=== PATIENT | male | born 1960 | race Caucasian/White ===

== ENCOUNTER 2017-04-23 05:36 | Day surgery (SDC) | payer OTHER ==
[2017-04-23] MEDS ORDERED: Lactated Ringers 1,000 ML IV SCH (06:30)
[2017-04-23] MEDS ORDERED: Lactated Ringers 1,000 ML IV ONE (08:41)
[2017-04-23] MEDS ORDERED: Versed 2 MG/2 ML Injection IV ONE (09:00)
[2017-04-23] MEDS ORDERED: DIPRIVAN 200 MG/20 ML IV ONE (09:00)
[2017-04-23 09:21] VITALS: O2SAT 95
[2017-04-23 09:55] VITALS: BP 124/77; PULSE 77
--- NOTE | 2017-04-23 10:48 | OP ---
SURGERY DATE: 04/23/17 SURGERY TIME: 818 PREOPERATIVE DIAGNOSIS: 1. RECTAL BLEEDING AND RECTAL PAIN. POSTOPERATIVE DIAGNOSIS: 1. NORMAL COLON. PROCEDURE: 1. Colonoscopy. SURGEON: Dr. Irizarry. ANESTHESIA: MAC. Medications given by the Anesthesia Department. BRIEF HISTORY: The patient is a 56 y/o WM patient presenting now for colonoscopic evaluation. He was appraised of the risks of the procedure including the risk of perforation, phlebitis, untoward reaction to medication, bleeding, and missed lesions. The patient verbalized his understanding and desired to have the procedure performed. DESCRIPTION OF PROCEDURE: The patient was given the medications by the Anesthesia Department. He had continuous pulse oximetry, ECG monitoring, intermittent BP monitoring, and end tidal CO2 monitoring during the examination. He was placed in the left lateral decubitus position. A digital rectal examination was performed and revealed normal anal sphincter tone, no masses, and a normal prostate. No significant hemorrhoids were noted. The flexible Olympus pediatric colonoscope was used to intubate the rectum. A view of the colon was developed sequentially to the cecum. Upon insertion and withdrawal, including a retroflex view in the rectum, no mucosal lesions were encountered. The scope was then removed from the patient who tolerated the procedure well and was sent back to OP recovery in good condition. The prep was noted to be fair.
== END 2017-04-23 10:00 | disposition home or self-care (01) ==
LOC: SDC 05:36
PROVIDERS: ATTEND Family Medicine
PROC: 0DJD8ZZ Inspection of Lower Intestinal Tract, Via Natural or Artificial Opening Endoscopic (ICD-10-PCS; principal; 2017-04-23)
DX: K62.5 Hemorrhage of anus and rectum (principal); K62.89 Other specified diseases of anus and rectum
CPT/HCPCS: 00810; J2250; J2704

== ENCOUNTER 2022-11-03 08:04 | Day surgery (SDC) | payer OTHER ==
[~2022-11-03 08:04] MED LIST: Ak-Dilate OPHTHALMIC*** 1.065 ML, Cyclogyl 1% OPHTH SOL 1.065 ML, GATIFLOXACIN 0.5% OPH... OP ONE; BETADINE 5% OPHTHALMIC 30 ML OP ONE; Lactated Ringers 1,000 ML IV SCH; NON-FORMULARY ITEM OP ONE; TETRACAINE 0.5% STERI-UNIT SOL OP ONE; cefUROXime sodium 0.005 GM in Sodium Chloride Flush 30 ML*** 0.5 ML IJ ONE
[2022-11-03] MEDS ORDERED: Lactated Ringers 1,000 ML IV ONE (08:09)
[2022-11-03] MEDS ORDERED: Zofran 4 MG/2 ML VIAL IV PRN (09:00)
[2022-11-03] MEDS ORDERED: ACETAZOLAMIDE 250 MG TABLET PO ONE (09:00)
[2022-11-03] MEDS ORDERED: SUBLIMAZE 100 MCG/2 ML ONE (09:52)
[2022-11-03] MEDS ORDERED: DIPRIVAN 200 MG/20 ML IV ONE (09:52)
[2022-11-03] MEDS ORDERED: Xylocaine-Mpf 2% 5 Ml Vial ONE (09:52)
[2022-11-03] MEDS ORDERED: Versed 2 MG/2 ML Injection ONE (09:52)
[2022-11-03 10:20] VITALS: O2SAT 95
[2022-11-03 10:27] VITALS: BP 116/74; PULSE 72
[2022-11-03] MEDS ORDERED: Epinephrine Preservative Free 1 MG/ML ONE (14:50)
== END 2022-11-03 10:37 | disposition home or self-care (01) ==
LOC: SDC 08:04
PROVIDERS: ATTEND Ophthalmology
DX: H25.812 Combined forms of age-related cataract, left eye (principal); E11.9 Type 2 diabetes mellitus without complications
CPT/HCPCS: 82947; C1780; J0171; J2250; J2704; J3010; A9270-GY

== ENCOUNTER 2024-11-03 06:46 | Emergency (ER) | payer BC, MEDICARE ==
[2024-11-03 07:09] VITALS: TEMP 97; O2SAT 95
--- NOTE | 2024-11-03 07:51 | ERPHSYRPT ---
- History of Present Illness Source: patient, family Exam Limitations: no limitations Patient Subjective Stated Complaint: pt states that he fell backward off the steps. pt states that he fell down 3 steps Triage Nursing Assessment: pt ambulated into the er; pt is axo x4; c/o fall; pt states 4/10 pain to neck; c/o dizziness; pt states positive LOC; tenderness to c spine; pt states pain to rt cheek, rt collar bones, rt posterior head; c/o nausea; pupils 3 mm and PERRL; skin PDW; vitals wnl Occurred: just prior to arrival Reason for Fall: lost balance, fell from standing pos Injuries/Pain Location: head, face, neck, upper extremity (Right side shoulder and clavicle) Loss of Consciousness: brief (seconds) Quality: aching Severity of Pain-Max: moderate Severity of Pain-Current: moderate Modifying Factors: Improves With: movement Associated Symptoms (Fall): extremity injury, headache, No chest pain, No dizziness, No shortness of breath, No slurred speech, No vomiting, No vision changes Hx Tetanus, Diphtheria Vaccination/Date Given: Yes Hx Influenza Vaccination/Date Given: No Hx Pneumococcal Vaccination/Date Given: Yes <BYRON JUAREZ - Last Filed: 11/03/24 09:01> <SUSIE BOTELLO - Last Filed: 11/03/24 09:38> - History of Present Illness Time Seen by Provider: 11/03/24 07:05 Physician History: This is a 64-year-old white male patient who has a history of diabetes and prostate issues and woke up this morning to go have a smoker of tobacco cigarettes. When he went to step, patient fell backwards off of 3 steps hitting his head, right side of his face, with associated brief loss of consciousness. He also complains of neck pain, right shoulder pain and right clavicle pain. Patient is not on any anticoagulation therapy. This occurred at approximately 530 this morning prior to arrival. Patient states he has mild nausea. Patient, upon entering the emergency department, had a c-collar placed. (BYRON JUAREZ) Allergies/Adverse Reactions: Penicillins Allergy (Verified 11/03/24 06:51) Home Medications: Metformin HCl 500 mg [Glucophage 500 MG] 1,000 mg PO DAILY 10/22/22 [History] Tamsulosin HCl 0.4 mg [Flomax 0.4 MG] 1 tab PO DAILY 10/22/22 [History] Travel Risk - International Travel Have you traveled outside of the country in past 3 weeks: No - Emerging Infectious Disease Are you exhibiting symptoms associated with any current EIDs: No <BYRON JUAREZ - Last Filed: 11/03/24 09:01> - Review of Systems Constitutional: No Symptoms Eyes: No Symptoms Ears, Nose, & Throat: No Symptoms Respiratory: No Symptoms Cardiac: No Symptoms Abdominal/Gastrointestinal: No Symptoms Genitourinary Symptoms: No Symptoms Musculoskeletal: Neck Pain, Fall, Injury (Clavicle and right shoulder) Skin: No Symptoms Neurological: Headache Psychological: No Symptoms Endocrine: No Symptoms Hematologic/Lymphatic: No Symptoms Immunological/Allergic: No Symptoms All Other Systems: Reviewed and Negative <BYRON JUAREZ - Last Filed: 11/03/24 09:01> - Past Medical History Pertinent Past Medical History: Yes Neurological History: No Pertinent History ENT History: Cataracts Cardiac History: No Pertinent History Respiratory History: No Pertinent History Endocrine Medical History: Diabetes Type II Musculoskeletal History: No Pertinent History GI Medical History: GERD History: No Pertinent History Psycho-Social History: No Pertinent History Male Reproductive Disorders: No Pertinent History - Past Surgical History Past Surgical History: Yes Neuro Surgical History: No Pertinent History Cardiac: No Pertinent History Respiratory: No Pertinent History Gastrointestinal: No Pertinent History Genitourinary: Other Musculoskeletal: No Pertinent History Male Surgical History: No Pertinent History Other Surgical History: bladder surgery 2017 Significant Family History: AORTIC ANEURYSMS - Social History Smoking Status: Never smoker Exposure to second hand smoke: Yes Drug Use: none - Social Determinants of Health Will the patient participate in the screening: Yes Do you worry about a steady place to live?: No Do you have any problems with any of the following?: No known problems In the past 12 months,have you had to go without utilities?: No Transportation Issues: No Has anyone in your support network made you feel unsafe?: No Have you or anyone in your house had to go without enough: No <BYRON JUAREZ - Last Filed: 11/03/24 09:01> - [place] Coma Score Best Eye Response ([place]): (4) open spontaneously Best Verbal Response (Joanna): (5) oriented Best Motor Response ([place]): (6) obeys commands Joanna Total: 15 - Physical Exam General Appearance: no apparent distress, alert, anxiety Head Injury: contusions (Occipital region), tenderness (Occipital region), No active bleeding Eye Exam: PERRL/EOMI, eyes nml inspection ENT Exam: airway nml, hearing grossly normal, other (Tenderness right side of face) Neck Exam: trachea midline, c-collar in place Respiratory/Chest Exam: normal breath sounds, No chest tenderness, No respiratory distress, No ecchymosis, No crepitus Cardiovascular Exam: normal heart sounds, regular rate/rhythm Gastrointestinal Exam: soft, normal bowel sounds, No tenderness Rectal Exam: not done Back Exam: normal inspection, normal range of motion, No CVA tenderness, No vertebral tenderness Extremity Exam: pelvis stable, tenderness (Right clavicle right shoulder), No deformities Neurologic Exam: alert, oriented x 3, cooperative, food sanitarian II-XII nml as tested Skin Exam: normal color, warm, dry SpO2 Interpretation: normal SpO2: 95 O2 Delivery: Room Air <BYRON JUAREZ - Last Filed: 11/03/24 09:01> - Nursing Vital Signs Nursing Vital Signs: Initial Vital Signs Temperature 97 F 11/03/24 06:52 Pulse Rate 80 11/03/24 06:52 Respiratory Rate 20 11/03/24 06:52 Blood Pressure 138/78 11/03/24 06:52 O2 Sat by Pulse Oximetry 95 11/03/24 06:52 Pain Scale Pain Intensity 5 - Course Nursing assessment & vital signs reviewed: Yes <BYRON JUAREZ - Last Filed: 11/03/24 09:01> Ordered Tests: Active Orders 24 hr Category Date Time Status IV Insertion STAT Care 11/03/24 08:20 Active CERVICAL SPINE WO CONTRAST [CT] Stat Exams 11/03/24 07:23 Completed CHEST 1 VIEW (PORTABLE) Stat Exams 11/03/24 07:24 Completed CLAVICLE Stat Exams 11/03/24 07:24 Completed ELBOW (MINIMUM 3 VIEWS) Stat Exams 11/03/24 07:51 Completed FACIAL BONES WO CONTRAST [CT] Stat Exams 11/03/24 07:23 Completed HEAD WITHOUT CONTRAST [CT] Stat Exams 11/03/24 07:23 Completed HUMERUS Stat Exams 11/03/24 07:52 Completed KNEE (1 OR 2 VIEW) Stat Exams 11/03/24 07:52 Completed SHOULDER Stat Exams 11/03/24 07:24 Completed BMP Stat Lab 11/03/24 08:50 Completed CBC W DIFF Stat Lab 11/03/24 08:50 Completed Medication Summary Discontinued Medications Generic Name Dose Route Start Last Admin Trade Name Parthq PRN Reason Stop Dose Admin Droperidol 1.25 mg 11/03/24 08:20 11/03/24 08:30 Droperidol 5 Mg/2 Ml Vial IV 11/03/24 08:21 1.25 mg STAT ONE Administration Droperidol Confirm 11/03/24 08:29 Droperidol 5 Mg/2 Ml Vial Administered 11/03/24 08:30 Dose 5 mg .ROUTE .STK-MED ONE Sodium Chloride 500 mls @ 500 mls/hr 11/03/24 08:21 11/03/24 08:30 Sodium Chloride 0.9% 500 Ml IV 11/03/24 09:20 500 mls/hr .Q1H ONE Administration Sodium Chloride Confirm 11/03/24 08:29 Sodium Chloride 0.9% 500 Ml Administered 11/03/24 08:30 Dose 500 mls @ ud IV .STK-MED ONE Lab/Rad Data: Laboratory Result Diagrams 11/03/24 08:50 11/03/24 08:50 Laboratory Results 11/03/24 11/03/24 Range/Units 08:50 08:50 WBC 7.4 (4.23-9.07) x10^3/uL RBC 4.87 (4.63-6.08) x10^6/uL Hgb 15.0 (13.7-17.5) g/dL Hct 44.6 (40.1-51.0) % MCV 91.6 (79.0-92.2) fL MCH 30.8 (25.7-32.2) pg MCHC 33.6 (32.3-36.5) g/dL RDW 12.9 (11.6-14.4) % Plt Count 162 L (163-337) x10^3/uL MPV 9.3 L (9.4-12.4) fL Gran % 73.4 H (34.0-67.9) % Immature Gran % (Auto) 0.5 H (0.001-0.429) % Nucleat RBC Rel Count 0.0 (0.00-0.2) % Eos # (Auto) 0.09 (0.04-0.54) x10^3/uL Immature Gran # (Auto) 0.04 H (0.001-0.031) x10^3u/L Absolute Lymphs (auto) 1.33 (1.32-3.57) x10^3/uL Absolute Monos (auto) 0.49 (0.30-0.82) x10^3/uL Absolute Nucleated RBC 0.00 (0.00-0.012) x10^3u/L Lymphocytes % 17.9 L (21.8-53.1) % Monocytes % 6.6 (5.3-12.2) % Eosinophils % 1.2 (0.8-7.0) % Basophils % 0.4 (0.2-1.2) % Absolute Granulocytes 5.46 H (1.78-5.38) x10^3/uL Basophils # 0.03 (0.01-0.08) x10^3/uL Sodium 137 (135-145) mmol/L Potassium 4.6 (3.5-5.1) mmol/L Chloride 105 (98-107) mmol/L Carbon Dioxide 23 (22-30) mmol/L Anion Gap 13.6 (5-15) MEQ/L BUN 20 (9-20) mg/dL Creatinine 0.68 (0.66-1.25) mg/dL Estimated GFR 103.2 ML/MIN Glucose 153 H (74-106) mg/dL Calcium 9.6 (8.4-10.2) mg/dL - Progress Progress: improved, pain not gone completely Counseled pt/family regarding: diagnosis, rad results <BYRON JUAREZ - Last Filed: 11/03/24 09:01> <SUSIE BOTELLO - Last Filed: 11/03/24 09:38> - Progress Progress Note: 11/03/24 07:48 My medical decision making and the assignment of moderate complexity to this patient's medical issue today is based on review of the patient's past medical history, review the patient's medication list, reviewed patient drug allergy list, history present illness and physical findings on examination. The workup today includes CT scan of the head, face and cervical spine. We will also order x-rays of the right clavicle right shoulder, portable chest x-ray, right humerus and right elbow as well as right knee. Differential diagnosis includes but is not limited to acute intracranial abnormality, acute cervical spine abnormality, acute facial bones abnormality, acute right clavicle, right shoulder, right elbow, right knee abnormality 11/03/24 08:49 I interpreted the preliminary reports on the plain x-rays: X-ray of the right shoulder shows no acute fracture or dislocation. X-ray of the right clavicle shows no acute fracture or dislocation. X-ray of the chest shows no acute cardiopulmonary process. No osseous abnormalities. X-ray of the right humerus shows a questionable old healing versus acute midshaft, nondisplaced fracture. X-ray of the right elbow shows no acute fracture or dislocation. 11/03/24 09:01 I am transferring care to Dr. Botello at 9 AM. I have reviewed the patient history, presenting complaint and workup that has been performed. He will follow-up on the workup results and make final disposition (BYRON JUAREZ) Patient was stable throughout stay. He got turned over to me. His thumbs all came back negative. He had multiple CTs and x-rays. We are going to discharge him to home. 11/03/24 09:37 (SUSIE BOTELLO) Medical Desision Making - Independent Historian Additional History obtained from: Spouse - Diagnostic Testing Radiological Interpretation: Interpreted by me, Reviewed by me, Teleradiologist Report - Risk of complications The pt has a mod risk of morbidity or mortality based on: Need for prescription drug management <BYRON JUAREZ - Last Filed: 11/03/24 09:01> - Independent Historian Additional History obtained from: Spouse - Risk of complications Minimal Risk: Minimal risk of morbidity <SUSIE BOTELLO - Last Filed: 11/03/24 09:38> - Departure Departure Disposition: Home Critical Care Time: No <BYRON JUAREZ - Last Filed: 11/03/24 09:01> - Departure Departure Disposition: Home <SUSIE BOTELLO - Last Filed: 11/03/24 09:38> - Departure Clinical Impression: Fall with injury Condition: Stable Referrals: BAILEY LONGO [Primary Care Provider] - Follow up/PCP as directed Instructions: Contusion (DC), Preventing falls in adults Additional Instructions: Ice pack to tender areas 3-4 times a day for the next 2 to 3 days. If there are no contraindications you may use Tylenol and ibuprofen slowly. However fill the Percocet prescription if you need stronger pain control in the place of Tylenol. Call your primary care provider today to make arranges for follow-up appointment to be seen in the next 3 to 5 days. Prescriptions: Ondansetron ODT 4 MG [Zofran Odt 4 mg] 4 mg PO Q6H PRN PRN #10 tablet PRN Reason: Vomiting Oxycodone HCl/Acetaminophen [Percocet 5-325 mg Tablet] 1 each PO Q8H PRN PRN #6 tablet MDD 3 PRN Reason: Moderate To Severe Pain
[2024-11-03] MEDS ORDERED: Sodium Chloride 0.9% 500 ML 500 ML IV ONE (08:29)
[2024-11-03] MEDS: Sodium Chloride 0.9% 500 ML 500 ML IV ONE (08:30)
[2024-11-03 08:51] LABS: Absolute Neutrophil Ct (ANC) 5.46 x10^3/uL (1.78-5.38); BASOPHIL % 0.4 % (0.2-1.2); Basophil (Absolute #) 0.03 x10^3/uL (0.01-0.08); Eosinophil % 1.2 % (0.8-7.0); Eosinophil (Absolute #) 0.09 x10^3/uL (0.04-0.54); Hematocrit 44.6 % (40.1-51.0); IMMATURE GRAN # 0.04 x10^3u/L (0.001-0.031); IMMATURE GRAN % 0.5 % (0.001-0.429); Lymphocyte (Absolute #) 1.33 x10^3/uL (1.32-3.57); Lymphocytes % 17.9 % (21.8-53.1); Mean Cell Volume 91.6 fL (79.0-92.2); Mean Corpuscular Hemoglobin 30.8 pg (25.7-32.2); Mean Corpuscular Hgb Concent. 33.6 g/dL (32.3-36.5); Mean Platelet Volume 9.3 fL (9.4-12.4); Monocyte (Absolute #) 0.49 x10^3/uL (0.30-0.82); Monocytes % 6.6 % (5.3-12.2); Neutrophil % 73.4 % (34.0-67.9); Platelet Count 162 x10^3/uL (163-337); Red Blood Count 4.87 x10^6/uL (4.63-6.08); Red Cell Distribution Width 12.9 % (11.6-14.4); White Blood Count 7.4 x10^3/uL (4.23-9.07)
[2024-11-03 09:04] LABS: ANION GAP 13.6 MEQ/L (5-15); Calcium 9.6 mg/dL (8.4-10.2); Creatinine 1 0.68 mg/dL (0.66-1.25); EST GLOMERULAR FILTRATION RATE 103.2 ML/MIN; Potassium 4.6 mmol/L (3.5-5.1)
--- NOTE | 2024-11-03 09:10 | XRAY ---
Indication: Status post fall. Multiple contiguous axial images obtained through the head without contrast. Comparison: None Age-appropriate global atrophy, minimal periventricular degenerative micro-ischemia bilaterally, remote lacunar infarct left external capsule, and subcentimeter remote infarct right insula. No acute intracranial hemorrhage, abnormal extra-axial fluid collection, or mass effect. Fourth ventricle is midline without hydrocephalus. Bony calvarium intact. Mild mucosal thickening left ethmoid/left maxillary sinuses. Remaining paranasal sinuses and mastoid air cells are clear. CT facial bones and CT cervical spine reported separately. Impression: Atrophy, degenerative micro-ischemia, remote lacunar infarct left external capsule, remote infarct right insula, and mild paranasal sinus disease. No acute intracranial abnormalities or fracture
--- NOTE | 2024-11-03 09:14 | XRAY ---
Indication: Status post fall. Multiple contiguous axial images obtained through the cervical spine. Sagittal and coronal reformatted images obtained Comparison: None Osseous structures demineralized. Axial images negative for acute fracture, suspicious bony lesions, or spinal canal stenosis. Minimal/mild multilevel anterior/posterior endplate spurring and tiny inferior C5 subcortical cysts. Facets are symmetric. Sagittal and coronal reformatted images demonstrates normal alignment with minimal multilevel disc space narrowing greatest at C7-T1. No acute compression fracture, subluxation, or jumped facet. Normal appearing craniocervical junction. Visualized noncontrasted soft tissues demonstrates minimal right carotid calcifications. CT head and CT facial bones reported separately. Impression: Osteopenia, multilevel degenerative spondylosis, and right carotid calcifications. Negative acute fracture/subluxation.
--- NOTE | 2024-11-03 09:18 | XRAY ---
Indication: Status post fall. Multiple contiguous axial images obtained through the facial bones. Sagittal and coronal reformatted images obtained Comparison: None Osseous structures demineralized. Multiple dental amalgams produces beam artifact. Remote appearing fracture bridge of nasal bone. No acute fracture, suspicious bony lesions, or radiopaque foreign body. Orbits including roof, buchanan, and floors intact. Mild mucosal thickening left maxillary/left ethmoid sinuses without fluid leveling. Remaining paranasal sinuses and nasal passages are clear. Very minimal nasal septal deviation to the right. Mild TMJ degenerative changes, right greater than left. Remaining visualized noncontrasted soft tissues are unremarkable. CT head and CT cervical spine reported separate. Impression: Negative for acute fracture. Incidental osteopenia, remote nasal bone fracture, mild paranasal sinus disease, bilateral TMJ degenerative changes, and minimal nasal septal deviation.
--- NOTE | 2024-11-03 09:20 | XRAY ---
Indication: Status post fall. Comparison: None 2 view right humerus demonstrates osteopenia, old humeral neck fracture, mild right shoulder degenerative arthropathy, and tiny degenerative spurring lateral epicondyle. No acute bony, articular, or soft tissue abnormalities.
--- NOTE | 2024-11-03 09:20 | XRAY ---
Indication: Status post fall. Comparison: None 3 view right shoulder demonstrates osteopenia, old humeral neck fracture, and mild glenohumeral/acromioclavicular degenerative arthropathy. No acute bony, articular, or soft tissue abnormalities.
--- NOTE | 2024-11-03 09:20 | XRAY ---
Indication: Status post fall. Comparison: None 2 view right clavicle demonstrates osteopenia, old humeral neck fracture, and mild glenohumeral/acromioclavicular degenerative arthropathy. No acute bony, articular, or soft tissue abnormalities.
--- NOTE | 2024-11-03 09:22 | XRAY ---
Indication: Status post fall. Comparison: None 3 view right elbow demonstrates osteopenia and degenerative spurring lateral epicondyle/olecranal process/coronoid process. No acute bony, articular, or soft tissue abnormalities.
--- NOTE | 2024-11-03 09:24 | XRAY ---
Indication: Status post fall. Comparison: January 08, 2020 Portable apical lordotic chest remains inflated and clear again with a few incidental tiny calcified granulomas and chronic right hemidiaphragm elevation. No focal infiltrate, consolidation, or large effusion. Heart not enlarged for AP portable technique. Bony thorax intact again with osteopenia and mild degenerative changes. Impression: Continued nonacute chest with chronic features.
--- NOTE | 2024-11-03 09:26 | XRAY ---
Indication: Status post fall. Comparison: None 2 view right knee demonstrates osteopenia, tiny suprapatella spurring, and mild diffuse scattered vascular calcifications. No acute bony, articular, or soft tissue abnormalities.
[2024-11-03 10:07] VITALS: BP 152/91; PULSE 84; RESP 21
== END 2024-11-03 10:10 | disposition home or self-care (01) ==
LOC: ED 06:46
DX: R51.9 Headache, unspecified (principal); M54.2 Cervicalgia; M25.511 Pain in right shoulder; W10.9XXA Fall (on) (from) unspecified stairs and steps, initial encounter
CPT/HCPCS: 36415; 70450; 70486; 71045; 72125; 73000; 73030; 73060; 73080; 73560; 80048; 85025; 96374; 99284; 99285